=== PATIENT | female | born 1935 | race Caucasian/White ===

== ENCOUNTER 2019-07-24 12:58 | Observation (INO) ==
[2019-07-24] MEDS ORDERED: Naloxone 0.4 MG/ML INJ IVP PRN (17:13)
[2019-07-24] MEDS ORDERED: *HR* OxyCODONE/APAP 5/325 TABLET PO PRN (17:15)
[2019-07-24] MEDS ORDERED: Acetaminophen 325 MG TABLET PO PRN (17:15)
[2019-07-24] MEDS ORDERED: Ondansetron 4 MG/2 ML VIAL IVP PRN (17:15)
[2019-07-24] MEDS ORDERED: *HR* FentaNYL (PF) 100 MCG/2 ML VIAL IVP PRN (17:49)
[2019-07-24] MEDS: *HR* OxyCODONE/APAP 5/325 TABLET PO PRN (18:12)
[2019-07-25] MEDS: *HR* OxyCODONE/APAP 5/325 TABLET PO PRN ×3 (04:30→17:30)
[2019-07-25 04:58] LABS: Basophils % 0.2 %; Eosinophils % 0.2 %; Hematocrit 34.1 % (35.3-44.9); Hemoglobin 11.4 g/dL (11.5-15.4); Immature Granulocytes % 1.2 % (0-4); Lymphocytes # 0.8 K/mcL (0.6-4.6); Lymphocytes % 12.8 %; Mean Corpuscular HGB Conc 33.4 g/dL (31.6-35.5); Mean Corpuscular Hemoglobin 29.5 pg (28.0-33.3); Mean Corpuscular Volume 88.3 fL (83.0-100.0); Mean Platelet Volume 10.4 fL (9.4-12.4); Monocytes # 1.8 K/mcL (0.0-1.3); Monocytes % 27.8 %; Neutrophils # 3.7 K/mcL (1.6-8.9); Platelet Count 260 K/mcL (140-400); Red Blood Count 3.86 M/mcL (3.82-4.97); Red Cell Distribution Width 12.4 % (11.5-14.5); Segmented Neutrophils % 57.8 %; White Blood Count 6.4 K/mcL (4.3-11.1)
[2019-07-25 05:22] LABS: BUN/Creatinine Ratio 23 (6-26); Blood Urea Nitrogen 23 mg/dL (8-23); Calcium 8.7 mg/dL (8.6-10.3); Carbon Dioxide 24 mEq/L (23-29); Chloride 98 mEq/L (98-107); Glucose 87 mg/dL (70-105); Magnesium 1.5 mg/dL (1.6-2.6); Osmolality,Calculated 271 (280-300); Phosphorous 2.1 mg/dL (2.7-4.5); Potassium 4.2 mEq/L (3.5-5.1); Sodium 129 mEq/L (136-145); eGFR For African Americans > 60 (> 60); eGFR For Non-African Americans 54 (> 60)
[2019-07-25 05:25] LABS: Platelet Estimate Normal (Normal)
[2019-07-25] MEDS: lisinopriL 20 MG TABLET PO SCH (08:00)
[2019-07-25] MEDS: amLODIPine 5 MG TABLET PO SCH (11:09)
[2019-07-26] MEDS: *HR* OxyCODONE/APAP 5/325 TABLET PO PRN ×3 (00:13→21:51)
[2019-07-26] MEDS ORDERED: *HR* OxyCODONE/APAP 5/325 TABLET ONE (09:12)
[2019-07-26] MEDS ORDERED: amLODIPine 5 MG TABLET ONE (09:12)
[2019-07-26] MEDS ORDERED: lisinopriL 20 MG TABLET ONE (09:12)
[2019-07-26 14:28] LABS: Hematocrit 34.1 % (35.3-44.9); Hemoglobin 11.5 g/dL (11.5-15.4); Mean Corpuscular HGB Conc 33.7 g/dL (31.6-35.5); Mean Corpuscular Hemoglobin 29.6 pg (28.0-33.3); Mean Corpuscular Volume 87.9 fL (83.0-100.0); Mean Platelet Volume 10.7 fL (9.4-12.4); Platelet Count 268 K/mcL (140-400); Red Blood Count 3.88 M/mcL (3.82-4.97); Red Cell Distribution Width 12.7 % (11.5-14.5)
[2019-07-26 16:36] LABS: Lymphocytes # 1.3 K/mcL (0.6-4.6); Monocytes # 1.1 K/mcL (0.0-1.3); Neutrophils # 3.6 K/mcL (1.6-8.9); Platelet Estimate Normal (Normal); Reactive Lymphocytes Present (Not Present)
[2019-07-26] MEDS: amLODIPine 5 MG TABLET PO SCH (16:51)
[2019-07-26] MEDS: lisinopriL 20 MG TABLET PO SCH (16:51)
[2019-07-26] MEDS: polyethylene glycoL 3350 17 GM POWD.PACK PO PRN (18:24)
[2019-07-27 00:29] LABS: BUN/Creatinine Ratio 15 (6-26); Blood Urea Nitrogen 15 mg/dL (8-23); Calcium 8.5 mg/dL (8.6-10.3); Carbon Dioxide 26 mEq/L (23-29); Chloride 97 mEq/L (98-107); Glucose 81 mg/dL (70-105); Magnesium 1.9 mg/dL (1.6-2.6); Osmolality,Calculated 270 (280-300); Phosphorous 2.9 mg/dL (2.7-4.5); Potassium 3.8 mEq/L (3.5-5.1); Sodium 130 mEq/L (136-145); eGFR For African Americans > 60 (> 60); eGFR For Non-African Americans 53 (> 60)
[2019-07-27] MEDS: *HR* Heparin 5,000 UNIT/ML VIAL SQ SCH ×4 (01:28→22:36)
[2019-07-27 06:46] LABS: Hematocrit 32.4 % (35.3-44.9); Hemoglobin 10.8 g/dL (11.5-15.4); Mean Corpuscular HGB Conc 33.3 g/dL (31.6-35.5); Mean Corpuscular Hemoglobin 29.5 pg (28.0-33.3); Mean Corpuscular Volume 88.5 fL (83.0-100.0); Mean Platelet Volume 10.5 fL (9.4-12.4); Platelet Count 239 K/mcL (140-400); Red Blood Count 3.66 M/mcL (3.82-4.97); Red Cell Distribution Width 12.4 % (11.5-14.5); White Blood Count 6.5 K/mcL (4.3-11.1)
[2019-07-27 06:58] LABS: BUN/Creatinine Ratio 17 (6-26); Blood Urea Nitrogen 15 mg/dL (8-23); Calcium 8.1 mg/dL (8.6-10.3); Carbon Dioxide 25 mEq/L (23-29); Chloride 94 mEq/L (98-107); Glucose 86 mg/dL (70-105); Magnesium 1.6 mg/dL (1.6-2.6); Osmolality,Calculated 262 (280-300); Phosphorous 2.4 mg/dL (2.7-4.5); Potassium 3.7 mEq/L (3.5-5.1); Sodium 126 mEq/L (136-145); eGFR For African Americans > 60 (> 60); eGFR For Non-African Americans > 60 (> 60)
[2019-07-27 08:12] LABS: Lymphocytes # 0.9 K/mcL (0.6-4.6); Monocytes # 1.2 K/mcL (0.0-1.3); Neutrophils # 4.4 K/mcL (1.6-8.9); Platelet Estimate Normal (Normal); Reactive Lymphocytes Present (Not Present)
[2019-07-27 08:13] LABS: Burr Cells 1+ (Not Present)
[2019-07-27] MEDS: *HR* OxyCODONE/APAP 5/325 TABLET PO PRN ×3 (08:27→22:36)
[2019-07-27] MEDS: lisinopriL 20 MG TABLET PO SCH (08:28)
[2019-07-27] MEDS: amLODIPine 5 MG TABLET PO SCH (08:29)
[2019-07-27] MEDS: MOM Conc 10 ML UD.LIQ PO PRN (22:35)
[2019-07-28] MEDS ORDERED: Chloraseptic Spray 177 ML BOTTLE MM PRN (06:23)
[2019-07-28] MEDS: *HR* Heparin 5,000 UNIT/ML VIAL SQ SCH ×3 (06:39→20:31)
[2019-07-28] MEDS: *HR* OxyCODONE/APAP 5/325 TABLET PO PRN ×3 (06:39→22:24)
[2019-07-28 06:54] LABS: BUN/Creatinine Ratio 14 (6-26); Blood Urea Nitrogen 12 mg/dL (8-23); Calcium 8.5 mg/dL (8.6-10.3); Carbon Dioxide 26 mEq/L (23-29); Chloride 97 mEq/L (98-107); Glucose 87 mg/dL (70-105); Magnesium 1.8 mg/dL (1.6-2.6); Osmolality,Calculated 269 (280-300); Phosphorous 2.8 mg/dL (2.7-4.5); Potassium 3.8 mEq/L (3.5-5.1); Sodium 130 mEq/L (136-145); eGFR For African Americans > 60 (> 60); eGFR For Non-African Americans > 60 (> 60)
[2019-07-28 07:00] LABS: Basophils % 0.2 %; Eosinophils % 0.5 %; Immature Granulocytes % 1.4 % (0-4); Lymphocytes # 1.3 K/mcL (0.6-4.6); Lymphocytes % 19.7 %; Mean Corpuscular HGB Conc 34.3 g/dL (31.6-35.5); Mean Corpuscular Hemoglobin 30.5 pg (28.0-33.3); Mean Corpuscular Volume 88.8 fL (83.0-100.0); Mean Platelet Volume 10.8 fL (9.4-12.4); Monocytes # 1.4 K/mcL (0.0-1.3); Monocytes % 21.6 %; Neutrophils # 3.6 K/mcL (1.6-8.9); Platelet Count 274 K/mcL (140-400); Red Blood Count 3.94 M/mcL (3.82-4.97); Red Cell Distribution Width 12.6 % (11.5-14.5); Segmented Neutrophils % 56.6 %; White Blood Count 6.4 K/mcL (4.3-11.1)
[2019-07-28 07:22] LABS: Platelet Estimate Normal (Normal)
[2019-07-28] MEDS: lisinopriL 20 MG TABLET PO SCH (08:27)
[2019-07-28] MEDS: amLODIPine 5 MG TABLET PO SCH (08:29)
[2019-07-28] MEDS: polyethylene glycoL 3350 17 GM POWD.PACK PO PRN (13:39)
[2019-07-29 01:31] LABS: Basophils % 0.1 %; Eosinophils % 0.3 %; Hematocrit 34.9 % (35.3-44.9); Hemoglobin 11.8 g/dL (11.5-15.4); Immature Granulocytes % 1.7 % (0-4); Lymphocytes # 1.3 K/mcL (0.6-4.6); Lymphocytes % 16.7 %; Mean Corpuscular HGB Conc 33.8 g/dL (31.6-35.5); Mean Corpuscular Hemoglobin 29.9 pg (28.0-33.3); Mean Corpuscular Volume 88.6 fL (83.0-100.0); Mean Platelet Volume 10.4 fL (9.4-12.4); Monocytes # 1.8 K/mcL (0.0-1.3); Monocytes % 23.6 %; Neutrophils # 4.3 K/mcL (1.6-8.9); Platelet Count 255 K/mcL (140-400); Red Blood Count 3.94 M/mcL (3.82-4.97); Red Cell Distribution Width 12.6 % (11.5-14.5); Segmented Neutrophils % 57.6 %; White Blood Count 7.5 K/mcL (4.3-11.1)
[2019-07-29 01:54] LABS: BUN/Creatinine Ratio 14 (6-26); Blood Urea Nitrogen 12 mg/dL (8-23); Calcium 8.4 mg/dL (8.6-10.3); Carbon Dioxide 24 mEq/L (23-29); Chloride 96 mEq/L (98-107); Glucose 98 mg/dL (70-105); Magnesium 1.9 mg/dL (1.6-2.6); Osmolality,Calculated 262 (280-300); Phosphorous 2.4 mg/dL (2.7-4.5); Potassium 4.1 mEq/L (3.5-5.1); Sodium 126 mEq/L (136-145); eGFR For African Americans > 60 (> 60); eGFR For Non-African Americans > 60 (> 60)
[2019-07-29] MEDS: *HR* OxyCODONE/APAP 5/325 TABLET PO PRN ×3 (03:18→13:43)
[2019-07-29 04:39] LABS: Platelet Estimate Normal (Normal)
[2019-07-29] MEDS: *HR* Heparin 5,000 UNIT/ML VIAL SQ SCH ×2 (05:03→13:43)
[2019-07-29] MEDS: amLODIPine 5 MG TABLET PO SCH (08:57)
[2019-07-29] MEDS: lisinopriL 20 MG TABLET PO SCH (08:58)
[2019-07-29] MEDS: MOM Conc 10 ML UD.LIQ PO PRN (14:20)
[2019-07-29 15:11] VITALS: BP 127/68
== END 2019-07-29 17:36 ==
LOC: PREOBSVTOIN 13:04 → INTOOBSV 15:53 → 3NENU 15:53
PROVIDERS: ADMIT Family Medicine; ATTEND Family Medicine